=== PATIENT | male | born 1955 | race Caucasian/White ===

== ENCOUNTER 2016-11-28 06:32 | Emergency (ER) | payer OTHER ==
[~2016-11-28] VITALS: Ht 177.8 cm; Wt 80.0 kg
[~2016-11-28 06:32] MED LIST: ASPI-621 PO; CHOL10003 PO; CITA40TA5 PO; HYDR-882 PO; LACT1CAP35 PO; METH500T7 PO; METH750T87 PO; MULT-82 PO; NORCO PO; OMEG300C5 PO; OMEP-110 PO; OXYC-229 PO; PANT40TA3 PO; RANI300T PO; SENN-31 PO; SUCR1TAB26 PO; calcium PO
[2016-11-28 06:45] VITALS: BP 143/88
[2016-11-28] MEDS ORDERED: FLUORESCEIN OPHTHALMIC 1 MG STRIP ONE (07:09)
[2016-11-28] MEDS ORDERED: PROPARACAINE OPHTH 0.5%, 15ML ONE (07:09)
== END 2016-11-28 08:25 | disposition home or self-care (01) ==
LOC: ED 06:35
DX: H11.31 Conjunctival hemorrhage, right eye (principal); I10 Essential (primary) hypertension; Z88.0 Allergy status to penicillin; Z91.041 Radiographic dye allergy status
CPT/HCPCS: 99283

== ENCOUNTER 2016-12-14 13:30 | Emergency (ER) | payer OTHER ==
[~2016-12-14] VITALS: Ht 177.8 cm; Wt 80.2 kg
[2016-12-14] MEDS ORDERED: IBUPROFEN 200 MG TABLET PO ONE (14:00)
[2016-12-14] MEDS ORDERED: HYDROcodone/APAP 5/325 TABLET PO ONE (14:00)
[2016-12-14] MEDS ORDERED: DIAZEPAM 5 MG TABLET PO ONE (14:00)
[2016-12-14] MEDS ORDERED: DIAZEPAM 5 MG TABLET ONE (14:06)
[2016-12-14] MEDS ORDERED: HYDROcodone/APAP 5/325 TABLET ONE (14:07)
[2016-12-14] MEDS ORDERED: HYDROmorphone 1 MG/ML, 1ML ONE (15:13)
[2016-12-14] MEDS ORDERED: ONDANSETRON ODT 4 MG ONE (15:14)
[2016-12-14] MEDS ORDERED: HYDROmorphone 1 MG/ML, 1ML IM ONE ×2 (15:30)
[2016-12-14] MEDS ORDERED: ONDANSETRON ODT 4 MG PO ONE (15:30)
[2016-12-14 15:50] VITALS: BP 133/83
== END 2016-12-14 16:01 | disposition home or self-care (01) ==
LOC: ED 15:15
DX: S29.011A Strain of muscle and tendon of front wall of thorax, initial encounter (principal); S20.212A Contusion of left front wall of thorax, initial encounter; M54.9 Dorsalgia, unspecified; G89.29 Other chronic pain; I25.10 Atherosclerotic heart disease of native coronary artery without angina pectoris; I10 Essential (primary) hypertension; E11.9 Type 2 diabetes mellitus without complications; M54.5 Low back pain; Y08.89XA Assault by other specified means, initial encounter; Y93.89 Activity, other specified; Y99.8 Other external cause status; Y92.89 Other specified places as the place of occurrence of the external cause
CPT/HCPCS: 70486; 71101; 72072; 72110; 96372; 99284; J1170; Q0162

== ENCOUNTER → 2016-12-17 | Outpatient (CLI) | payer OTHER | END | disposition home or self-care (01) | LOC: RAD 06:59 | PROVIDERS: ATTEND Emergency Medicine | DX: J98.4 Other disorders of lung (principal) | CPT/HCPCS: 71020 ==

== ENCOUNTER → 2017-01-22 | Outpatient (CLI) | payer OTHER ==
[~2017-01-22] MED LIST changes: +REGADENOSON 0.4 MG/5 ML SYRINGE ONE
== END | disposition home or self-care (01) ==
LOC: CFH 12:28
PROVIDERS: ATTEND Internal Medicine Cardiovascular Disease
DX: Z01.810 Encounter for preprocedural cardiovascular examination (principal); I25.10 Atherosclerotic heart disease of native coronary artery without angina pectoris
CPT/HCPCS: 78452; 93017; A9502; J2785

== ENCOUNTER → 2017-06-30 | Outpatient (CLI) | payer OTHER ==
[~2017-06-30] MED LIST changes: +MULT-224 PO; -MULT-82 PO; -OXYC-229 PO; +OXYC-307 PO; -REGADENOSON 0.4 MG/5 ML SYRINGE ONE; -SUCR1TAB26 PO; +SUCR1TAB33 PO
[2017-06-30 08:48] LABS: HEMATOCRIT 45.9 % (39.2-51.8); HEMOGLOBIN 15.4 g/dL (13.7-18.0); WHITE BLOOD COUNT 7.6 x10^3/uL (3.4-10)
== END | disposition home or self-care (01) ==
LOC: LAB 08:22
PROVIDERS: ATTEND Neurological Surgery
DX: Z01.818 Encounter for other preprocedural examination (principal); M48.061 Spinal stenosis, lumbar region without neurogenic claudication; M41.86 Other forms of scoliosis, lumbar region; R79.1 Abnormal coagulation profile
CPT/HCPCS: 36415; 81003; 82565; 82947; 84132; 84295; 85025; 85610; 85730; 86850; 86900